=== PATIENT | male | born 1960 | race Caucasian/White ===

== ENCOUNTER 2024-06-18 15:57 | Emergency (ER) | payer MEDICAID ==
[2024-06-18] MEDS: Sodium Chloride 0.9% 10 ML Syringe FLUSH PRN ×2 (17:00→17:35)
[2024-06-18 17:15] LABS: BASOPHILS ABSOLUTE AUTO 0.1 K/mm3 (0.0-0.2); BASOPHILS PERCENT AUTO 1.6 % (0.0-1.0); EOSINOPHILS PERCENT AUTO 0.2 % (0.0-6.0); HEMATOCRIT 36.7 % (42.0-52.0); HEMOGLOBIN 12.9 gm/dl (14.0-18.0); IMMATURE GRAN ABSOLUTE AUTO 0.01 K/mm3 (0.00-0.05); IMMATURE GRAN PERCENT AUTO 0.2 % (0.0-0.4); LYMPHOCYTES ABSOLUTE AUTO 0.4 K/mm3 (1.0-4.8); LYMPHOCYTES PERCENT AUTO 7.2 % (24.0-44.0); MEAN CORPUSCULAR HGB CONC 35.1 g/dl (32.0-36.0); MEAN CORPUSCULAR VOLUME 105.2 fl (83.0-99.0); MEAN PLATELET VOLUME 10.4 fl (9.4-12.4); MONOCYTES ABSOLUTE AUTO 0.5 K/mm3 (0.0-0.8); MONOCYTES PERCENT AUTO 10.2 % (0.0-8.0); NEUTROPHILS PERCENT AUTO 80.6 % (41.0-71.0); PLATELET COUNT,PLT 77 K/mm3 (150-400); RED BLOOD CELL COUNT 3.49 M/mm3 (4.52-5.90)
[2024-06-18] MEDS: Sodium Chloride 0.9% 500 ML IV SCH (17:35)
[2024-06-18 17:37] LABS: INR 1.49; PROTHROMBIN TIME 15.4 SECONDS (9.7-12.0)
[2024-06-18 17:51] LABS: SLIDE REVIEW ABNORMAL SMEAR
[2024-06-18 17:54] LABS: A/G RATIO 0.4 (1-2); ALBUMIN 2.1 g/dl (3.4-5.0); ANION GAP 14.5 (5-15); BILIRUBIN TOTAL 4.6 mg/dL (0.2-1.0); BUN/CREATININE RATIO 8.6 (14-18); CALCIUM 7.6 mg/dL (8.5-10.1); EST CRCL DRUG DOSING (CG) 99.67 mL/min; POTASSIUM,K 3.5 mEq/L (3.5-5.1)
[2024-06-18 17:56] LABS: CREATININE 0.7 mg/dL (0.7-1.3); PROTEIN TOTAL,TP 7.7 g/dl (6.4-8.2)
[2024-06-18 18:03] LABS: APPEARANCE,URINE CLEAR (Clear); BILIRUBIN,URINE 3+ (Negative); COLOR,URINE AMBER (Yellow); GLUCOSE,URINE TRACE (Negative); KETONES,URINE 1+ (Negative); LEUKOCYTE ESTERASE,URINE NEGATIVE (Negative); NITRITE,URINE NEGATIVE (Negative); OCCULT BLOOD,URINE NEGATIVE (Negative); PROTEIN,URINE 2+ (Negative); UROBILINOGEN,URINE >=8.0 (0.2-1.0)
[2024-06-18] MEDS: Iopamidol 612 MG/ML 100 ML Bottle IVPUSH ONE (18:07)
[2024-06-18 18:13] LABS: RBC,URINE 0-5 /hpf (0-5); WBC,URINE 0-5 /hpf (0-5)
[2024-06-18 18:14] LABS: BACTERIA,URINE FEW /hpf (FEW); HYALINE CASTS,URINE 0-5 /lpf (0-5); SQUAMOUS EPITHELIAL CELLS,UR 0-5 /hpf (0-5)
[2024-06-18 18:15] LABS: MUCUS,URINE MODERATE /hpf (FEW)
[2024-06-18] MEDS: valACYclovir 1,000 MG Tab PO ONE (19:10)
== END 2024-06-18 21:11 | disposition home or self-care (01) ==
LOC: JD.ED 15:57
DX: R14.0 Abdominal distension (gaseous) (principal); B02.9 Zoster without complications; F17.210 Nicotine dependence, cigarettes, uncomplicated
CPT/HCPCS: 36415; 74177; 80053; 81001; 82150; 83690; 85025; 85610; 99284; A9270; J7030; Q9967

== ENCOUNTER 2024-07-09 13:59 | Emergency (ER) | payer MEDICAID | END 2024-07-09 15:45 | disposition home or self-care (01) | LOC: JD.ED 13:59 | DX: M77.9 Enthesopathy, unspecified (principal) | CPT/HCPCS: 73610-26-RT; 73610-RT; 99283; 99284 ==

== ENCOUNTER 2024-09-16 13:25 | Inpatient (IN) | payer MEDICAID ==
[2024-09-16 14:12] LABS: BASOPHILS ABSOLUTE AUTO 0.1 K/mm3 (0.0-0.2); BASOPHILS PERCENT AUTO 1.1 % (0.0-1.0); EOSINOPHILS PERCENT AUTO 0.1 % (0.0-6.0); IMMATURE GRAN ABSOLUTE AUTO 0.02 K/mm3 (0.00-0.05); IMMATURE GRAN PERCENT AUTO 0.3 % (0.0-0.4); LYMPHOCYTES ABSOLUTE AUTO 0.4 K/mm3 (1.0-4.8); LYMPHOCYTES PERCENT AUTO 5.9 % (24.0-44.0); MEAN CORPUSCULAR HEMOGLOBIN 36.5 pg (28.0-32.0); MEAN CORPUSCULAR HGB CONC 34.2 g/dl (32.0-36.0); MEAN CORPUSCULAR VOLUME 106.7 fl (83.0-99.0); MEAN PLATELET VOLUME 10.2 fl (9.4-12.4); MONOCYTES ABSOLUTE AUTO 0.7 K/mm3 (0.0-0.8); MONOCYTES PERCENT AUTO 10.2 % (0.0-8.0); NEUTROPHILS ABSOLUTE AUTO 5.8 K/mm3 (1.8-7.7); NEUTROPHILS PERCENT AUTO 82.4 % (41.0-71.0); PLATELET COUNT,PLT 133 K/mm3 (150-400); RED BLOOD CELL COUNT 3.56 M/mm3 (4.52-5.90); WHITE BLOOD CELL COUNT,WBC 7.08 K/mm3 (3.9-11.3)
[2024-09-16] MEDS: Sodium Chloride 0.9% 1,000 ML IV ONE (14:32)
[2024-09-16] MEDS: cefTRIAXone 2 GM Vial IVPUSH SCH (14:32)
[2024-09-16 14:44] LABS: A/G RATIO 0.3 (1-2); ANION GAP 13.4 (5-15); BILIRUBIN TOTAL 9.4 mg/dL (0.2-1.0); CALCIUM 8.2 mg/dL (8.5-10.1); EST CRCL DRUG DOSING (CG) 77.52 mL/min; ETHANOL BLOOD MEDICAL 0.07 gm% (0.00); MAGNESIUM 1.3 mg/dL (1.8-2.4)
[2024-09-16 14:45] LABS: POTASSIUM,K 3.4 mEq/L (3.5-5.1)
[2024-09-16 14:46] LABS: CREATININE 0.9 mg/dL (0.7-1.3); PROTEIN TOTAL,TP 8.7 g/dl (6.4-8.2)
[2024-09-16 14:49] LABS: LACTIC ACID 3.4 mmol/L (0.4-2.0)
[2024-09-16] MEDS: Albuterol/Ipratropium 3.0-0.5 MG/3 ML Neb Soln NEB ONE (17:29)
[2024-09-16] MEDS: Magnesium Sulf/Wat 2 GM/50 mL 2 GM/50 ML BAG IV ONE (17:36)
[2024-09-16] MEDS: Potassium Chloride 20 MEQ Tab.ER PO ONE ×2 (17:37→22:25)
[2024-09-16 17:49] LABS: INR 1.54; PROTHROMBIN TIME 15.9 SECONDS (9.7-12.0)
[2024-09-16 18:18] LABS: APPEARANCE,BODY FLUID CLEAR; COLOR,BODY FLUID YELLOW; SITE,BODY FLUID PERITONEAL; VOLUME BODY FLUID 5 ML; WBC BODY FLUID 78 /uL (0-0)
[2024-09-16 18:20] LABS: MONONUCLEAR, BODY FLUID 66.7 % (0.0-0.0); POLYMORPHONUCLEAR, BODY FLUID 33.3 % (0.0-0.0)
[2024-09-16 18:21] LABS: RBC,BODY FLUID < 3000 /uL (0-0)
[2024-09-16 20:47] LABS: ANION GAP 12.4 (5-15); CREATININE 0.8 mg/dL (0.7-1.3); EST CRCL DRUG DOSING (CG) 87.22 mL/min; MAGNESIUM 1.9 mg/dL (1.8-2.4); POTASSIUM,K 3.4 mEq/L (3.5-5.1)
[2024-09-16] MEDS: LORazepam 2 MG/ML SDV IVPUSH ONE (22:25)
[2024-09-16] MEDS ORDERED: Sennosides/Docusate Sodium 50-8.6 MG Tab PO PRN (23:23)
[2024-09-16] MEDS ORDERED: Ibuprofen 400 MG Tab PO PRN (23:23)
[2024-09-16] MEDS ORDERED: Melatonin 3 MG Tab PO PRN (23:23)
[2024-09-16] MEDS ORDERED: LORazepam 2 MG/ML SDV IVPUSH PRN (23:51)
[2024-09-17] MEDS: Albumin 25% 12.5 GM/50 ML Bag IV ONE (00:16)
[2024-09-17] MEDS: Albumin 25% 50 ML IV SCH (02:59)
[2024-09-17 05:31] LABS: BASOPHILS ABSOLUTE AUTO 0.1 K/mm3 (0.0-0.2); BASOPHILS PERCENT AUTO 0.9 % (0.0-1.0); EOSINOPHILS PERCENT AUTO 0.7 % (0.0-6.0); HEMATOCRIT 30.8 % (42.0-52.0); IMMATURE GRAN ABSOLUTE AUTO 0.03 K/mm3 (0.00-0.05); IMMATURE GRAN PERCENT AUTO 0.5 % (0.0-0.4); LYMPHOCYTES ABSOLUTE AUTO 0.4 K/mm3 (1.0-4.8); LYMPHOCYTES PERCENT AUTO 7.6 % (24.0-44.0); MEAN CORPUSCULAR HEMOGLOBIN 36.5 pg (28.0-32.0); MEAN CORPUSCULAR HGB CONC 34.7 g/dl (32.0-36.0); MEAN CORPUSCULAR VOLUME 105.1 fl (83.0-99.0); MEAN PLATELET VOLUME 10.2 fl (9.4-12.4); MONOCYTES ABSOLUTE AUTO 0.8 K/mm3 (0.0-0.8); MONOCYTES PERCENT AUTO 12.9 % (0.0-8.0); NEUTROPHILS ABSOLUTE AUTO 4.5 K/mm3 (1.8-7.7); NEUTROPHILS PERCENT AUTO 77.4 % (41.0-71.0); PLATELET COUNT,PLT 90 K/mm3 (150-400); RED BLOOD CELL COUNT 2.93 M/mm3 (4.52-5.90)
[2024-09-17 05:32] LABS: HEMOGLOBIN 10.7 gm/dl (14.0-18.0)
[2024-09-17 05:53] LABS: A/G RATIO 0.3 (1-2); ALBUMIN 1.7 g/dl (3.4-5.0); ANION GAP 7.8 (5-15); BILIRUBIN TOTAL 8.8 mg/dL (0.2-1.0); BUN/CREATININE RATIO 11.4 (14-18); CALCIUM 7.6 mg/dL (8.5-10.1); EST CRCL DRUG DOSING (CG) 99.67 mL/min; MAGNESIUM 1.5 mg/dL (1.8-2.4); PHOSPHORUS 2.9 mg/dL (2.6-4.7)
[2024-09-17 05:54] LABS: POTASSIUM,K 3.8 mEq/L (3.5-5.1)
[2024-09-17 05:55] LABS: CREATININE 0.7 mg/dL (0.7-1.3)
[2024-09-17 05:59] LABS: SLIDE REVIEW ABNORMAL SMEAR
[2024-09-17] MEDS: cefTRIAXone 1 GM Vial IV SCH (06:11)
[2024-09-17] MEDS: Magnesium Sulf/Wat 2 GM/50 mL 2 GM/50 ML BAG IV ONE (10:08)
[2024-09-17] MEDS: Enoxaparin 40 MG/0.4 ML Syringe SUBCUT SCH (10:09)
[2024-09-17] MEDS: Spironolactone 100 MG Tab PO SCH (12:47)
[2024-09-17] MEDS: Furosemide 40 MG Tab PO SCH (12:47)
[2024-09-17] MEDS ORDERED: Acetaminophen 325 MG Tab PO PRN (14:42)
[2024-09-17] MEDS: Lactulose Soln 10 GM/15 ML 30 ML UD Cup PO SCH (15:58)
[2024-09-17] MEDS: Thiamine 100 MG Tab PO SCH (20:04)
[2024-09-17] MEDS: Folic Acid 1 MG Tab PO SCH (20:04)
[2024-09-18 08:22] LABS: BASOPHILS ABSOLUTE AUTO 0.1 K/mm3 (0.0-0.2); BASOPHILS PERCENT AUTO 0.8 % (0.0-1.0); EOSINOPHILS ABSOLUTE AUTO 0.1 K/mm3 (0.0-0.4); EOSINOPHILS PERCENT AUTO 1.2 % (0.0-6.0); HEMATOCRIT 34.7 % (42.0-52.0); IMMATURE GRAN ABSOLUTE AUTO 0.04 K/mm3 (0.00-0.05); IMMATURE GRAN PERCENT AUTO 0.5 % (0.0-0.4); LYMPHOCYTES ABSOLUTE AUTO 0.9 K/mm3 (1.0-4.8); LYMPHOCYTES PERCENT AUTO 11.5 % (24.0-44.0); MEAN CORPUSCULAR HEMOGLOBIN 37.3 pg (28.0-32.0); MEAN CORPUSCULAR HGB CONC 35.2 g/dl (32.0-36.0); MEAN CORPUSCULAR VOLUME 106.1 fl (83.0-99.0); MEAN PLATELET VOLUME 10.8 fl (9.4-12.4); MONOCYTES ABSOLUTE AUTO 0.9 K/mm3 (0.0-0.8); MONOCYTES PERCENT AUTO 11.5 % (0.0-8.0); NEUTROPHILS ABSOLUTE AUTO 5.7 K/mm3 (1.8-7.7); NEUTROPHILS PERCENT AUTO 74.5 % (41.0-71.0); PLATELET COUNT,PLT 119 K/mm3 (150-400); RED BLOOD CELL COUNT 3.27 M/mm3 (4.52-5.90); WHITE BLOOD CELL COUNT,WBC 7.67 K/mm3 (3.9-11.3)
[2024-09-18 08:23] LABS: HEMOGLOBIN 12.2 gm/dl (14.0-18.0)
[2024-09-18 08:37] LABS: A/G RATIO 0.3 (1-2); ALBUMIN 1.8 g/dl (3.4-5.0); ANION GAP 9.6 (5-15); BILIRUBIN TOTAL 12.2 mg/dL (0.2-1.0); CALCIUM 7.6 mg/dL (8.5-10.1); EST CRCL DRUG DOSING (CG) 77.52 mL/min
[2024-09-18] MEDS: Multivitamin Tab PO SCH (08:37)
[2024-09-18 08:53] LABS: POTASSIUM,K 3.6 mEq/L (3.5-5.1)
[2024-09-18 08:54] LABS: CREATININE 0.9 mg/dL (0.7-1.3)
[2024-09-18 08:55] LABS: PROTEIN TOTAL,TP 7.7 g/dl (6.4-8.2)
[2024-09-18] MEDS ORDERED: Magnesium Sulf/Wat 2 GM/50 mL 2 GM in Premix Bag 1 BAG IV ONE (20:00)
[2024-09-18] MEDS: Magnesium Sulf/Wat 4 GM/50 mL 4 GM in Premix Bag 1 BAG IV ONE (20:02)
[2024-09-19 05:32] LABS: BASOPHILS ABSOLUTE AUTO 0.1 K/mm3 (0.0-0.2); BASOPHILS PERCENT AUTO 0.7 % (0.0-1.0); EOSINOPHILS ABSOLUTE AUTO 0.1 K/mm3 (0.0-0.4); EOSINOPHILS PERCENT AUTO 1.7 % (0.0-6.0); HEMATOCRIT 30.3 % (42.0-52.0); HEMOGLOBIN 10.9 gm/dl (14.0-18.0); IMMATURE GRAN ABSOLUTE AUTO 0.05 K/mm3 (0.00-0.05); IMMATURE GRAN PERCENT AUTO 0.6 % (0.0-0.4); LYMPHOCYTES ABSOLUTE AUTO 0.9 K/mm3 (1.0-4.8); LYMPHOCYTES PERCENT AUTO 11.2 % (24.0-44.0); MEAN CORPUSCULAR HEMOGLOBIN 37.8 pg (28.0-32.0); MEAN CORPUSCULAR VOLUME 105.2 fl (83.0-99.0); MEAN PLATELET VOLUME 10.7 fl (9.4-12.4); NEUTROPHILS ABSOLUTE AUTO 6.2 K/mm3 (1.8-7.7); NEUTROPHILS PERCENT AUTO 73.8 % (41.0-71.0); PLATELET COUNT,PLT 121 K/mm3 (150-400); RED BLOOD CELL COUNT 2.88 M/mm3 (4.52-5.90)
[2024-09-19 05:50] LABS: A/G RATIO 0.3 (1-2); ALBUMIN 1.6 g/dl (3.4-5.0); ANION GAP 8.5 (5-15); BILIRUBIN TOTAL 9.7 mg/dL (0.2-1.0); BUN/CREATININE RATIO 17.8 (14-18); CALCIUM 7.4 mg/dL (8.5-10.1); CREATININE 0.9 mg/dL (0.7-1.3); EST CRCL DRUG DOSING (CG) 77.52 mL/min; MAGNESIUM 2.1 mg/dL (1.8-2.4); POTASSIUM,K 3.5 mEq/L (3.5-5.1); PROTEIN TOTAL,TP 6.7 g/dl (6.4-8.2)
[2024-09-19] MEDS: Lactulose Soln 10 GM/15 ML 30 ML UD Cup PO SCH (08:03)
[2024-09-20 05:51] LABS: BASOPHILS ABSOLUTE AUTO 0.1 K/mm3 (0.0-0.2); BASOPHILS PERCENT AUTO 0.6 % (0.0-1.0); EOSINOPHILS ABSOLUTE AUTO 0.1 K/mm3 (0.0-0.4); EOSINOPHILS PERCENT AUTO 1.4 % (0.0-6.0); HEMOGLOBIN 11.1 gm/dl (14.0-18.0); IMMATURE GRAN ABSOLUTE AUTO 0.06 K/mm3 (0.00-0.05); IMMATURE GRAN PERCENT AUTO 0.7 % (0.0-0.4); LYMPHOCYTES PERCENT AUTO 11.7 % (24.0-44.0); MEAN CORPUSCULAR HEMOGLOBIN 37.6 pg (28.0-32.0); MEAN CORPUSCULAR HGB CONC 35.8 g/dl (32.0-36.0); MEAN CORPUSCULAR VOLUME 105.1 fl (83.0-99.0); MONOCYTES ABSOLUTE AUTO 1.1 K/mm3 (0.0-0.8); MONOCYTES PERCENT AUTO 13.1 % (0.0-8.0); NEUTROPHILS PERCENT AUTO 72.5 % (41.0-71.0); PLATELET COUNT,PLT 146 K/mm3 (150-400); RED BLOOD CELL COUNT 2.95 M/mm3 (4.52-5.90); WHITE BLOOD CELL COUNT,WBC 8.32 K/mm3 (3.9-11.3)
[2024-09-20 05:53] LABS: A/G RATIO 0.3 (1-2); ALBUMIN 1.6 g/dl (3.4-5.0); ANION GAP 10.5 (5-15); BILIRUBIN TOTAL 9.3 mg/dL (0.2-1.0); BUN/CREATININE RATIO 22.5 (14-18); CALCIUM 7.7 mg/dL (8.5-10.1); EST CRCL DRUG DOSING (CG) 87.22 mL/min; MAGNESIUM 1.6 mg/dL (1.8-2.4)
[2024-09-20 06:18] LABS: CREATININE 0.8 mg/dL (0.7-1.3); POTASSIUM,K 3.5 mEq/L (3.5-5.1)
[2024-09-20] MEDS: Magnesium Oxide 400 MG Tab PO SCH (12:55)
== END 2024-09-20 08:45 | disposition home or self-care (01) | DRG 433 ==
LOC: JD.ED 13:25 → JD.MS 22:04
PROVIDERS: ADMIT Student in an Organized Health Care Education/Training Program; ATTEND Family Medicine
DX: K70.31 Alcoholic cirrhosis of liver with ascites (principal); D68.9 Coagulation defect, unspecified; K76.6 Portal hypertension; E87.20 Acidosis, unspecified; I85.10 Secondary esophageal varices without bleeding; K76.82 Hepatic encephalopathy; F17.210 Nicotine dependence, cigarettes, uncomplicated; E88.09 Other disorders of plasma-protein metabolism, not elsewhere classified; F10.129 Alcohol abuse with intoxication, unspecified; E87.6 Hypokalemia; E83.42 Hypomagnesemia; K72.90 Hepatic failure, unspecified without coma; Z98.890 Other specified postprocedural states
CPT/HCPCS: 36415; 71045; 71045-26; 80048; 80053; 80307; 82140; 83605; 83735; 84100; 85025; 85610; 87040; 87070; 87075; 87205; 89050; 94667; 94668; 94760; 94761; 97116-GP; 97162-GP; 97530-GP; 99223; 99232; 99233; 99239; 99285; A9270-GY; J0696; J1650; J2060; J3475; J7030; P9047

== ENCOUNTER 2024-09-28 14:13 | Emergency (ER) | payer MEDICAID ==
[2024-09-28] MEDS ORDERED: Sodium Chloride 0.9% 10 ML Syringe FLUSH PRN (15:48)
[2024-09-28 16:33] LABS: BASOPHILS ABSOLUTE AUTO 0.1 K/mm3 (0.0-0.2); BASOPHILS PERCENT AUTO 1.1 % (0.0-1.0); EOSINOPHILS ABSOLUTE AUTO 0.1 K/mm3 (0.0-0.4); EOSINOPHILS PERCENT AUTO 1.1 % (0.0-6.0); HEMATOCRIT 31.7 % (42.0-52.0); HEMOGLOBIN 10.9 gm/dl (14.0-18.0); IMMATURE GRAN ABSOLUTE AUTO 0.02 K/mm3 (0.00-0.05); IMMATURE GRAN PERCENT AUTO 0.3 % (0.0-0.4); LYMPHOCYTES ABSOLUTE AUTO 0.7 K/mm3 (1.0-4.8); MEAN CORPUSCULAR HEMOGLOBIN 38.1 pg (28.0-32.0); MEAN CORPUSCULAR HGB CONC 34.4 g/dl (32.0-36.0); MEAN CORPUSCULAR VOLUME 110.8 fl (83.0-99.0); MEAN PLATELET VOLUME 10.5 fl (9.4-12.4); MONOCYTES PERCENT AUTO 13.7 % (0.0-8.0); NEUTROPHILS ABSOLUTE AUTO 5.7 K/mm3 (1.8-7.7); NEUTROPHILS PERCENT AUTO 74.8 % (41.0-71.0); PLATELET COUNT,PLT 170 K/mm3 (150-400); RED BLOOD CELL COUNT 2.86 M/mm3 (4.52-5.90); WHITE BLOOD CELL COUNT,WBC 7.59 K/mm3 (3.9-11.3)
[2024-09-28 16:54] LABS: INR 1.46; PROTHROMBIN TIME 15.1 SECONDS (9.7-12.0)
[2024-09-28 16:56] LABS: A/G RATIO 0.3 (1-2); ALBUMIN 1.7 g/dl (3.4-5.0); ANION GAP 7.1 (5-15); CALCIUM 8.1 mg/dL (8.5-10.1); EST CRCL DRUG DOSING (CG) 69.77 mL/min; MAGNESIUM 1.5 mg/dL (1.8-2.4); PTT,PARTIAL THROMBOPLSTIN TIME 28.8 SECONDS (21.7-31.4)
[2024-09-28 17:08] LABS: POTASSIUM,K 3.1 mEq/L (3.5-5.1); PROTEIN TOTAL,TP 7.6 g/dl (6.4-8.2)
[2024-09-28] MEDS: Potassium Chloride 20 MEQ Tab.ER PO ONE (18:49)
[2024-09-28] MEDS: Magnesium Oxide 400 MG Tab PO ONE (18:49)
[2024-09-29] MEDS: Magnesium Sulf/Wat 4 GM/50 mL 4 GM in Premix Bag 1 BAG IV ONE (03:20)
== END 2024-09-28 19:30 | disposition left against medical advice (07) ==
LOC: JD.ED 14:13
DX: E87.6 Hypokalemia (principal); E83.42 Hypomagnesemia; R18.8 Other ascites; R94.31 Abnormal electrocardiogram [ECG] [EKG]; Z79.899 Other long term (current) drug therapy
CPT/HCPCS: 36415; 80053; 83735; 85025; 85610; 85730; 93005; 99285; A9270-GY

== ENCOUNTER 2024-12-27 20:09 | Emergency (ER) | payer MEDICARE, MEDICAID ==
[2024-12-27] MEDS ORDERED: Sodium Chloride 0.9% 10 ML Syringe FLUSH PRN (20:56)
[2024-12-27 22:14] LABS: BASOPHILS ABSOLUTE AUTO 0.1 K/mm3 (0.0-0.2); BASOPHILS PERCENT AUTO 0.8 % (0.0-1.0); EOSINOPHILS ABSOLUTE AUTO 0.1 K/mm3 (0.0-0.4); EOSINOPHILS PERCENT AUTO 0.8 % (0.0-6.0); HEMATOCRIT 29.9 % (42.0-52.0); IMMATURE GRAN ABSOLUTE AUTO 0.02 K/mm3 (0.00-0.05); IMMATURE GRAN PERCENT AUTO 0.3 % (0.0-0.4); LYMPHOCYTES ABSOLUTE AUTO 0.7 K/mm3 (1.0-4.8); MEAN CORPUSCULAR HEMOGLOBIN 34.5 pg (28.0-32.0); MEAN CORPUSCULAR HGB CONC 33.4 g/dl (32.0-36.0); MEAN CORPUSCULAR VOLUME 103.1 fl (83.0-99.0); MEAN PLATELET VOLUME 10.4 fl (9.4-12.4); MONOCYTES ABSOLUTE AUTO 0.9 K/mm3 (0.0-0.8); MONOCYTES PERCENT AUTO 12.9 % (0.0-8.0); NEUTROPHILS ABSOLUTE AUTO 4.9 K/mm3 (1.8-7.7); NEUTROPHILS PERCENT AUTO 75.2 % (41.0-71.0); PLATELET COUNT,PLT 106 K/mm3 (150-400); WHITE BLOOD CELL COUNT,WBC 6.57 K/mm3 (3.9-11.3)
[2024-12-27 23:17] LABS: INR 1.57; PROTHROMBIN TIME 16.2 SECONDS (9.7-12.0)
[2024-12-27 23:27] LABS: A/G RATIO 0.3 (1-2); ALBUMIN 1.6 g/dl (3.4-5.0); ANION GAP 10.5 (5-15); BILIRUBIN TOTAL 7.6 mg/dL (0.2-1.0); CALCIUM 8.1 mg/dL (8.5-10.1); EST CRCL DRUG DOSING (CG) 57.38 mL/min
[2024-12-27 23:33] LABS: APPEARANCE,URINE CLEAR (Clear); BILIRUBIN,URINE 3+ (Negative); COLOR,URINE BROWN (Yellow); GLUCOSE,URINE TRACE (Negative); KETONES,URINE 1+ (Negative); LEUKOCYTE ESTERASE,URINE 3+ (Negative); NITRITE,URINE POSITIVE (Negative); OCCULT BLOOD,URINE NEGATIVE (Negative); PROTEIN,URINE 2+ (Negative); UROBILINOGEN,URINE >=8.0 (0.2-1.0)
[2024-12-27 23:43] LABS: CREATININE 1.2 mg/dL (0.7-1.3); POTASSIUM,K 4.5 mEq/L (3.5-5.1)
[2024-12-27 23:44] LABS: PROTEIN TOTAL,TP 7.9 g/dl (6.4-8.2)
[2024-12-27 23:52] LABS: BACTERIA,URINE FEW /hpf (FEW); EPITHELIAL CELLS,URINE 0-5 /hpf (0-5); HYALINE CASTS,URINE 0-5 /lpf (0-5); MUCUS,URINE MODERATE /hpf (FEW); RBC,URINE NOT SEEN /hpf (0-5); WBC,URINE 0-5 /hpf (0-5)
[2024-12-28] MEDS: Cephalexin 500 MG Cap PO ONE (02:52)
== END 2024-12-28 03:05 | disposition home or self-care (01) ==
LOC: JD.ED 20:09
DX: R18.8 Other ascites (principal); E80.6 Other disorders of bilirubin metabolism; R82.90 Unspecified abnormal findings in urine; R74.8 Abnormal levels of other serum enzymes; R79.89 Other specified abnormal findings of blood chemistry; F17.200 Nicotine dependence, unspecified, uncomplicated; Z79.899 Other long term (current) drug therapy
CPT/HCPCS: 36415; 49083; 71045; 74176; 80053; 81001; 83690; 83880; 85025; 85610; 85730; 87086; 93005; 99285; A9270; 93010; 99283